=== PATIENT | male | born 1955 | race Asian ===

== ENCOUNTER 2018-06-09 03:11 | Emergency (ER) | payer OTHER ==
[~2018-06-09] VITALS: Ht 167.6 cm; Wt 79.5 kg
[2018-06-09] MEDS ORDERED: SIMV-259 PO (03:29)
[2018-06-09] MEDS ORDERED: AMLO2.5T PO (03:29)
[2018-06-09] MEDS ORDERED: SODIUM CHLORIDE 0.9% 1,000 ML IV ONE (03:45)
[2018-06-09 03:53] LABS: BASOPHILS % (AUTO) 0.4 % (0.0-2.0); EOSINOPHILS % (AUTO) 0.1 % (1.0-6.0); HEMATOCRIT 45.7 % (41-53); HEMOGLOBIN 15.4 g/dL (13.5-17.5); LYMPHOCYTES # (AUTO) 1.2 K/uL (1.0-4.8); LYMPHOCYTES % (AUTO) 16.9 % (22.0-44.0); MEAN CORPUSCULAR HEMOGLOBIN 32.1 pg (26.0-34.0); MEAN CORPUSCULAR HGB CONC 33.7 G/dL (31.0-37.0); MEAN CORPUSCULAR VOLUME 96 fL (80-100); MONOCYTES # (AUTO) 0.3 K/uL (0.1-1.0); MONOCYTES % (AUTO) 4.2 % (2.0-9.0); NEUTROPHILS # (AUTO) 5.8 K/uL (1.8-7.7); NEUTROPHILS % (AUTO) 78.4 % (40.0-70.0); PLATELET COUNT (AUTO) 244 K/uL (150-450); RED BLOOD CELL COUNT(AUTO) 4.79 MIL/uL (4.50-5.90)
[2018-06-09 03:54] LABS: AMPHET/METH SCREEN,URINE NEGATIVE (NEGATIVE); BARBITURATE SCREEN, URINE NEGATIVE (NEGATIVE); BENZODIAZEPINES SCREEN,URINE NEGATIVE (NEGATIVE); CANNABINOID SCREEN,URINE NEGATIVE (NEGATIVE); COCAINE SCREEN,URINE NEGATIVE (NEGATIVE); METHADONE SCREEN, URINE NEGATIVE (NEGATIVE); OPIATE SCREEN,URINE NEGATIVE (NEGATIVE)
[2018-06-09 03:56] LABS: PHENCYCLIDINE SCREEN,URINE NEGATIVE (NEGATIVE)
[2018-06-09 04:01] LABS: ANION GAP 14 mmol/L (8-16); CALCIUM, TOTAL 8.9 mg/dL (8.8-10.5); CARBON DIOXIDE 24 mmol/L (22-29); CHLORIDE 104 mmol/L (98-107); CREATININE 1.21 mg/dL (0.60-1.30); GLOMERULAR FILTR. RATE CALC > 60 mL/min (>60); GLUCOSE,RANDOM 130 mg/dL (70-110); POTASSIUM 3.3 mmol/L (3.5-5.1); SODIUM SERUM 142 mmol/L (136-145); UREA NITROGEN, BLOOD 25 mg/dL (7-18)
[2018-06-09 04:08] LABS: ALANINE AMINOTRANSFERASE 48 U/L (12-78); ALBUMIN 4.3 g/dL (3.4-5.0); ALKALINE PHOSPHATASE 69 U/L (46-116); ASPARTATE AMINOTRANSFERASE 31 U/L (15-37); BILIRUBIN,TOTAL 0.8 mg/dL (0.1-1.0)
[2018-06-09] MEDS ORDERED: POTASSIUM CHLORIDE 20 MEQ ER TABLET PO ONE (05:45)
[2018-06-09 08:28] VITALS: BP 127/71
[2018-06-09] MEDS ORDERED: ONDANSETRON HCL 4 MG/2 ML VIAL IVP ONE (08:45)
== END 2018-06-09 09:27 | disposition home or self-care (01) ==
LOC: EMS 03:13
DX: F10.229 Alcohol dependence with intoxication, unspecified (principal); I10 Essential (primary) hypertension; E78.00 Pure hypercholesterolemia, unspecified; J45.909 Unspecified asthma, uncomplicated; Y90.7 Blood alcohol level of 200-239 mg/100 ml; Z79.899 Other long term (current) drug therapy
CPT/HCPCS: 36415; 80053; 80307; 84484; 85025; 93005; 93041; 96374; 99285; G0480; J2405; J7030